=== PATIENT | female | born 1985 | race Caucasian/White ===

== ENCOUNTER 2019-04-04 21:15 | Emergency (ER) | payer OTHER ==
[~2019-04-04] VITALS: Ht 162.6 cm; Wt 69.9 kg
[2019-04-04 21:18] VITALS: Ht 162.6 cm; Wt 69.9 kg
[2019-04-04 23:01] VITALS: BP 123/63
== END 2019-04-04 23:01 | disposition home or self-care (01) ==
LOC: ED 21:15
DX: B00.9 Herpesviral infection, unspecified (principal); K13.79 Other lesions of oral mucosa; M25.561 Pain in right knee; R50.9 Fever, unspecified; Z88.0 Allergy status to penicillin

== ENCOUNTER 2020-02-14 02:22 | Emergency (ER) | payer OTHER ==
[~2020-02-14] VITALS: Ht 165.1 cm; Wt 65.8 kg
[2020-02-14 02:34] VITALS: Ht 165.1 cm; Wt 65.8 kg
[2020-02-14 04:16] VITALS: BP 112/66
== END 2020-02-14 04:16 | disposition home or self-care (01) ==
LOC: ED 02:22
DX: J02.9 Acute pharyngitis, unspecified (principal); Z88.0 Allergy status to penicillin

== ENCOUNTER 2020-02-17 02:58 | Emergency (ER) | payer OTHER ==
[~2020-02-17] VITALS: Ht 165.1 cm; Wt 60.8 kg
[2020-02-17 03:05] VITALS: Ht 165.1 cm; Wt 60.8 kg
[2020-02-17 03:44] LABS: BASOPHIL % 0.3 % (0-2); PLATELET COUNT 291 x10^3mcL (130-400); RED CELL DISTRIBUTION WIDTH 12.1 % (11.5-14.5)
[2020-02-17 04:05] LABS: CARBON DIOXIDE 27.5 mmol/L (21-32); CHLORIDE SERUM 102 mmol/L (98-107); GFR1 > 60 mL/min; GLUCOSE SERUM 96 mg/dL (74-106); POTASSIUM SERUM 4.1 mmol/L (3.5-5.1); SODIUM SERUM 138 mmol/L (136-145)
[2020-02-17 04:09] LABS: ALBUMIN 3.9 g/dL (3.4-5.0); ALKALINE PHOSPHATASE 85 U/L (46-116); ALT/SGPT 37 U/L (14-59); AST/SGOT 27 U/L (15-37); BILIRUBIN TOTAL 0.32 mg/dL (0.20-1.00); LIPASE 188 IU/L (73-393)
[2020-02-17 05:14] VITALS: BP 117/64
== END 2020-02-17 05:14 | disposition home or self-care (01) ==
LOC: ED 02:58
PROVIDERS: Emergency Medicine
DX: K29.70 Gastritis, unspecified, without bleeding (principal); Z88.0 Allergy status to penicillin
CPT/HCPCS: J1885; J2405; J7030; Q0092